=== PATIENT | female | born 1940 | race Asian ===

== ENCOUNTER 2016-09-08 07:33 | Emergency (ER) | payer MEDICARE, OTHER ==
[~2016-09-08] VITALS: Ht 160 cm; Wt 80.0 kg
[~2016-09-08 07:33] MED LIST: ALLO100T PO; AMLO-218 PO; ASPI-664 PO; ATOR40TA68 PO; GLIP-95 PO; LOSA50TA6 PO; METO50TA16 PO
[2016-09-08 07:40] VITALS: Ht 160 cm; Wt 80.0 kg
[2016-09-08 08:35] LABS: INR 1.11; PROTIME 14.3 Sec (12.2-14.2); PT RATIO 1.1
[2016-09-08 08:36] LABS: PARTIAL THROMBOPLASTIN TIME 33.2 Sec (25.0-35.0)
[2016-09-08 08:37] LABS: ADD SCAN DIFF NO
[2016-09-08 08:43] LABS: BASOPHILS % 0.3 % (0.0-2.0); EOSINOPHILS # 0.1 10^3/ul (0.0-0.5); HEMATOCRIT 30.6 % (37.0-47.0); HEMOGLOBIN 9.2 g/dl (12.0-16.0); LYMPHOCYTES % 12.4 % (15.0-51.0); MEAN CORPUSCULAR HEMOGLOBIN 29.3 pg (29.0-33.0); MEAN CORPUSCULAR HGB CONC 30.1 g/dl (32.0-37.0); MEAN CORPUSCULAR VOLUME 97.5 fl (82.0-101.0); MEAN PLATELET VOLUME 9.9 fl (7.4-10.4); MONOCYTE # 0.4 10^3/ul (0.3-0.9); MONOCYTES % 5.4 % (0.0-11.0); NEUTROPHIL # 6.1 10^3/ul (1.6-7.5); NEUTROPHILS % 79.3 % (39.0-77.0); NUCLEATED RED BLOOD CELLS% 0.3 /100WBC (0.0-0.0); PLATELET COUNT 263 10^3/UL (140-415); RED BLOOD COUNT 3.14 10^6/ul (4.20-5.40); WHITE BLOOD COUNT 7.7 10^3/ul (4.8-10.8)
[2016-09-08 09:35] LABS: CALCIUM 8.2 mg/dl (8.4-10.2); CREATININE 3.17 mg/dl (0.44-1.00); POTASSIUM 4.8 mmol/L (3.5-5.1)
[2016-09-08 10:28] VITALS: BP 150/69; PULSE 66; RESP 20; TEMP 97.8
--- NOTE | 2016-09-08 13:27 | ERD ---
ER Documentation Chief Complaint Date/Time DATE: 09/08/16 TIME: 13:23 Chief Complaint bleeding cath HPI Patient is a 76-year-old female with dialysis, diabetes, and hypertension who presents with bleeding from her dialysis site. She has a Padilla catheter in her left chest wall. Please note that a [place] auto polisher was used for the history and physical exam. The patient was due for dialysis today at 2:30 PM. She had bleeding from the dialysis catheter site and so she was sent to the ER. The nursing staff change the dressing 3 times at the nursing facility. Upon review of old medical record she has multiple visits for various complaints. ROS All systems reviewed and are negative except as per history of present illness. Medications Home Meds Reported Medications Amlodipine Besylate* (Norvasc*) 10 Mg Tablet, 10 MG PO DAILY, TAB 07/17/14 Metoprolol Succinate* (Toprol XL*) 50 Mg Tab.er.24h, 50 MG PO DAILY, TAB 07/17/14 Losartan Potassium* (Losartan Potassium*) 50 Mg Tablet, 50 MG PO DAILY, TAB 15 Atorvastatin* (Atorvastatin*) 40 Mg Tablet, 40 MG PO HS, TAB 07/17/14 Glipizide* (Glipizide*) 10 Mg Tablet, 10 MG PO AC BREAKFAST DINNER, TAB 07/17/14 Aspirin* (Aspirin* EC) 81 Mg Tablet.dr, 81 MG PO DAILY, TAB 07/17/14 Allopurinol* (Allopurinol*) 100 Mg Tablet, 100 MG PO DAILY, TAB 07/17/14 Allergies Allergies: Coded Allergies: No Known Allergy (Unverified , 10/22/13) PMhx/Soc Medical and Surgical Hx: pt denies Surgical Hx History of Surgery: Yes (dialysis catheter insertion) Anesthesia Reaction: No Hx Neurological Disorder: No Hx Respiratory Disorders: No Hx Cardiac Disorders: Yes (HTN) Hx Psychiatric Problems: No Hx Miscellaneous Medical Probl: Yes (ESRD. dialysis ([facility])) Hx Alcohol Use: No Hx Substance Use: No Hx Tobacco Use: No Smoking Status: Never smoker FmHx Family History: diabetes Physical Exam Vitals Vital Signs Date Time Temp Pulse Resp B/P Pulse Ox O2 Delivery O2 Flow Rate FiO2 09/08/16 10:28 97.8 66 20 150/69 100 Room Air 09/08/16 07:40 97.8 78 20 189/71 99 Physical Exam Const: No acute distress Head: Atraumatic Eyes: Normal Conjunctiva ENT: Normal External Ears, Nose and Mouth. Neck: Full range of motion..~ No meningismus. Resp: Clear to auscultation bilaterally Cardio: Regular rate and rhythm, no murmurs Abd: Soft, non tender, non distended. Normal bowel sounds Skin: Clot around the Padilla catheter site without active bleeding Back: No midline or flank tenderness Ext: No cyanosis, or edema Neur: Awake and alert Psych: Normal Mood and Affect Result Diagram: 09/08/16 0815 09/08/16 0815 Results 24 hrs Laboratory Tests Test 09/08/16 08:00 09/08/16 08:15 Prothrombin Time 14.3Sec Prothrombin Time Ratio 1.1 INR International Normalized Ratio 1.11 Activated Partial Thromboplast Time 33.2Sec White Blood Count 7.710^3/ul Red Blood Count 3.1410^6/ul Hemoglobin 9.2g/dl Hematocrit 30.6% Mean Corpuscular Volume 97.5fl Mean Corpuscular Hemoglobin 29.3pg Mean Corpuscular Hemoglobin Concent 30.1g/dl Red Cell Distribution Width 18.0% Platelet Count 69999^3/UL Mean Platelet Volume 9.9fl Neutrophils % 79.3% Lymphocytes % 12.4% Monocytes % 5.4% Eosinophils % 1.0% Basophils % 0.3% Nucleated Red Blood Cells % 0.3/100WBC Neutrophils # 6.110^3/ul Lymphocytes # 1.010^3/ul Monocytes # 0.410^3/ul Eosinophils # 0.110^3/ul Basophils # 0.010^3/ul Nucleated Red Blood Cells # 0.010^3/ul Sodium Level 133mmol/L Potassium Level 4.8mmol/L Chloride Level 101mmol/L Carbon Dioxide Level 30mmol/L Anion Gap 7 Blood Urea Nitrogen 29mg/dl Creatinine 3.17mg/dl Glucose Level 100mg/dl Calcium Level 8.2mg/dl Procedures/[facility] Patient is a 76-year-old female presents with bleeding from her dialysis catheter site. She does have anemia but does not require transfusion at this time. I believe that outpatient management is appropriate as there is no active bleeding at this time. A Surgicel dressing was applied around the site of the clot to ensure hemostasis. The patient will be discharged back to the nursing facility so that she can get her dialysis today at 2:30 PM. Departure Diagnosis: Primary Impression: Anemia Anemia type: unspecified type Qualified Code: D64.9 - Anemia, unspecified type Additional Impressions: Bleeding Complication of vascular access for dialysis Encounter type: initial encounter Qualified Code: T82.9XXA - Complication of vascular access for dialysis, initial encounter Condition: Fair Patient Instructions: Dialysis Shunt (Fistula) Bleeding Referrals: Your doctor Additional Instructions: Call your primary care doctor TOMORROW for an appointment during the next 1-2 days.See the doctor sooner or return here if your condition worsens before your appointment time. JOYCELYN BORJAS MD Sep 08, 2016 13:27
== END 2016-09-08 10:34 | disposition home or self-care (01) ==
LOC: E/R 07:33
DX: D64.9 Anemia, unspecified (principal); I12.0 Hypertensive chronic kidney disease with stage 5 chronic kidney disease or end stage renal disease; N18.6 End stage renal disease; E11.9 Type 2 diabetes mellitus without complications; Y82.8 Other medical devices associated with adverse incidents; Z99.2 Dependence on renal dialysis; Z79.82 Long term (current) use of aspirin; Z79.84 Long term (current) use of oral hypoglycemic drugs
CPT/HCPCS: 36415; 80048; 85025; 85610; 85730; 99283

== ENCOUNTER 2017-05-07 00:55 | Emergency (ER) | payer MEDICARE, OTHER ==
[~2017-05-07] VITALS: Ht 165.1 cm; Wt 54.0 kg
[~2017-05-07 00:55] MED LIST changes: +METO-319 PO; -METO50TA16 PO
[2017-05-07 01:13] VITALS: Ht 165.1 cm; Wt 54.0 kg
--- NOTE | 2017-05-07 01:16 | ERD ---
ER Documentation Chief Complaint Chief Complaint Dizziness HPI The patient is a 76-year-old female, presenting to the ER because of lightheadedness for the last 2 hours dialysis. She normally has dizziness after dialysis but it is more this evening. She denies syncope, near syncope, neck pain, chest pain, abdominal pain, vomiting, dysuria, diarrhea. She does not smoke nor drink Past medical history: Chronic kidney disease, hemodialysis on Wednesday and Wednesday, hypertension, diabetes mellitus, CAD Past surgical history: CABG, left chest hemodialysis catheter ROS All systems reviewed and are negative except as per history of present illness. Medications Home Meds Reported Medications Atorvastatin Calcium* (Atorvastatin Calcium*) 20 Mg Tablet, 20 MG PO QHS, #30 TAB 05/07/17 Carvedilol* (Carvedilol*) 6.25 Mg Tablet, 6.25 MG PO BID, #60 TAB 05/07/17 Isosorbide Mononitrate* (Isosorbide Mononitrate*) 60 Mg Tab.er.24h, 60 MG PO QAM , TAB 05/07/17 Benazepril Hcl* (Benazepril Hcl*) 10 Mg Tablet, 10 MG PO DAILY, #30 TAB 05/07/17 Metolazone* (Metolazone*) 2.5 Mg Tablet, 2.5 MG PO DAILY, TAB 05/07/17 Hydralazine Hcl* (Hydralazine Hcl*) 25 Mg Tab, 25 MG PO TID WITH MEALS, #90 TAB 05/07/17 Atorvastatin Calcium* (Atorvastatin Calcium*) 20 Mg Tablet, 20 MG PO QHS, #30 TAB 05/07/17 Metoprolol Succinate* (Toprol XL*) 50 Mg Tab.er.24h, 50 MG PO DAILY, TAB 07/17/14 Losartan Potassium* (Losartan Potassium*) 50 Mg Tablet, 50 MG PO DAILY, TAB 07/17/14 Glipizide* (Glipizide*) 10 Mg Tablet, 10 MG PO AC BREAKFAST DINNER, TAB 07/17/14 Discontinued Reported Medications Amlodipine Besylate* (Norvasc*) 10 Mg Tablet, 10 MG PO DAILY, TAB 07/17/14 Atorvastatin* (Atorvastatin*) 40 Mg Tablet, 40 MG PO HS, TAB 07/17/14 Aspirin* (Aspirin* EC) 81 Mg Tablet.dr, 81 MG PO DAILY, TAB 07/17/14 Allopurinol* (Allopurinol*) 100 Mg Tablet, 100 MG PO DAILY, TAB 07/17/14 Allergies Allergies: Coded Allergies: No Known Allergy (Unverified , 10/22/13) PMhx/Soc History of Surgery: Yes (dialysis catheter insertion) Anesthesia Reaction: No Hx Neurological Disorder: No Hx Respiratory Disorders: No Hx Cardiac Disorders: Yes (HTN) Hx Psychiatric Problems: No Hx Miscellaneous Medical Probl: Yes (ESRD. dialysis ([facility])) Hx Alcohol Use: No Hx Substance Use: No Hx Tobacco Use: No Physical Exam Vitals Vital Signs Date Time Temp Pulse Resp B/P Pulse Ox O2 Delivery O2 Flow Rate FiO2 05/07/17 05:45 70 18 118/71 99 Room Air 05/07/17 04:08 69 11 105/58 98 Room Air 05/07/17 02:00 74 14 117/60 98 Room Air 05/07/17 01:36 97.8 73 22 103/55 98 Room Air 05/07/17 01:13 97.8 69 19 103/55 98 Physical Exam Const: No acute distress. Head: Atraumatic. Eyes: Normal Conjunctiva. ENT: Normal External Ears, Nose and Mouth. Neck: Full range of motion. No meningismus. Resp: Clear to auscultation bilaterally. Cardio: Regular rate and rhythm. Abd: Soft, non distended, normal bowel sounds, non tender. Skin: No petechiae or rashes. Back: No midline or flank tenderness. Ext: No cyanosis, or edema. Neur: Awake and alert. No focal deficit Psych: Normal Mood and Affect. Result Diagram: 05/07/17 0141 05/07/17 0141 Results 24 hrs Laboratory Tests Test 05/07/17 01:41 White Blood Count 11.810^3/ul Red Blood Count 3.5210^6/ul Hemoglobin 11.2g/dl Hematocrit 35.3% Mean Corpuscular Volume 100.3fl Mean Corpuscular Hemoglobin 31.8pg Mean Corpuscular Hemoglobin Concent 31.7g/dl Red Cell Distribution Width 12.7% Platelet Count 85637^3/UL Mean Platelet Volume 9.7fl Neutrophils % 79.1% Lymphocytes % 13.6% Monocytes % 5.7% Eosinophils % 0.3% Basophils % 0.3% Nucleated Red Blood Cells % 0.0/100WBC Neutrophils # 9.410^3/ul Lymphocytes # 1.610^3/ul Monocytes # 0.710^3/ul Eosinophils # 0.010^3/ul Basophils # 0.010^3/ul Nucleated Red Blood Cells # 0.010^3/ul Prothrombin Time 13.2Sec Prothrombin Time Ratio 1.0 INR International Normalized Ratio 0.99 Activated Partial Thromboplast Time 31.0Sec Sodium Level 134mmol/L Potassium Level 5.3mmol/L Chloride Level 95mmol/L Carbon Dioxide Level 29mmol/L Anion Gap 15 Blood Urea Nitrogen 40mg/dl Creatinine 2.10mg/dl Glucose Level 158mg/dl Calcium Level 8.5mg/dl Current Medications Medications (Trade) Dose Ordered Sig/Elena Route PRN Reason Start Time Stop Time Status Last Admin Dose Admin Sodium Polystyrene Sulfonate (Kayexalate) 30 gm ONCE ONCE PO 05/07/17 05:00 05/07/17 05:03 DC 05/07/17 05:23 Procedures/[place] [address] Radiology Main Line: [phone] DIAGNOSTIC IMAGING REPORT Patient: TEENA CISNEROS : 1940 Age: 76 Sex: F [id number] DOS: 05/07/17 0129 Ordering MD: GAIL MEDEROS MD Location: E/R Room/Bed: PROCEDURE: CT Brain without contrast. CLINICAL INDICATION: Dizziness TECHNIQUE: A CT of the brain was performed utilizing axial imaging from the skull base through the vertex without intravenous contrast. Multiplanar reformatted images were made.The CTDIvol is 44.19 mGy and the DLP is 720.23 mGycm. One or more the following dose reduction techniques were utilized: Automated exposure control, adjustment of the mA and / or kV according to patient's size, or use of iterative reconstruction technique. DICOM images are available. COMPARISON: None. FINDINGS: There is no intracranial hemorrhage, mass effect, or midline shift. No extra- axial fluid collection is seen. Mild atrophy is identified with compensatory ventricular and sulcal enlargement. Mild to moderate decreased attenuation is seen in the periventricular and deep white matter, compatible with microvascular ischemic disease. The ta white matter differentiation is well preserved with no acute infarct detected. The osseous structures and visualized paranasal sinuses are unremarkable. Arterial calcification. Cavum septum pellucidum et vergae, normal variant, is seen. IMPRESSION: 1. No evidence of acute intracranial pathology. 2. Mild diffuse atrophy. 3. There is mild to moderate microvascular ischemic disease in the periventricular and deep white matter. 4. Moderate arterial calcification. RPTAT: HJES .Leo Pappas MD, MD Date Time Electronically viewed and signed by .Leo Pappas MD, MD on 05/07/2017 03:43 .S/ CC: GAIL MEDEROS MD EKG: Read by emergency physician Rate/Rhythm: Normal Sinus Rhythm 69 beats/min, QRS, ST, T-waves: No ST elevation, lat ant T abn, LAD Impression: Abnormal EKG MEDICAL MAKING DECISION: The patient is a 76-year-old female, presenting with acute dizziness of unclear etiology, acute mild hyperkalemia. She was treated with Kayexalate 30 g p.o. for acute hypokalemia with good response, is stable for outpatient follow-up The differential diagnoses considered include but are not limited to central causes such as cerebellar infarct, cerebellar hemorrhage, cerebellar tumor, acoustic neuroma, peripheral causes such as benign positional vertigo, labyrinthitis, medication, Meniere's disease. Departure Diagnosis: Primary Impression: Dizziness Additional Impressions: Hyperkalemia Anemia Condition: Good Comments I discussed the findings with the patient. I advised the patient to follow-up with the primary physician in about 1-2 days, sooner if needed and return if any concern. Disclaimer: Inadvertent spelling and grammatical errors are likely due to EHR/ dictation software use and do not reflect on the overall quality of patient care. Also, please note that the electronic time recorded on this note does not necessarily reflect the actual time of the patient encounter. GAIL MEDEROS MD May 07, 2017 01:16
[2017-05-07 01:36] VITALS: TEMP 97.8
[2017-05-07 01:47] LABS: BASOPHILS % 0.3 % (0.0-2.0); EOSINOPHILS % 0.3 % (0.0-7.0); HEMATOCRIT 35.3 % (37.0-47.0); HEMOGLOBIN 11.2 g/dl (12.0-16.0); LYMPHOCYTES # 1.6 10^3/ul (0.8-2.9); LYMPHOCYTES % 13.6 % (15.0-51.0); MEAN CORPUSCULAR HEMOGLOBIN 31.8 pg (29.0-33.0); MEAN CORPUSCULAR HGB CONC 31.7 g/dl (32.0-37.0); MEAN CORPUSCULAR VOLUME 100.3 fl (82.0-101.0); MEAN PLATELET VOLUME 9.7 fl (7.4-10.4); MONOCYTE # 0.7 10^3/ul (0.3-0.9); MONOCYTES % 5.7 % (0.0-11.0); NEUTROPHIL # 9.4 10^3/ul (1.6-7.5); NEUTROPHILS % 79.1 % (39.0-77.0); PLATELET COUNT 204 10^3/UL (140-415); RED BLOOD COUNT 3.52 10^6/ul (4.20-5.40); RED CELL DISTRIBUTION WIDTH 12.7 % (11.5-14.5); WHITE BLOOD COUNT 11.8 10^3/ul (4.8-10.8)
[2017-05-07 02:27] LABS: INR 0.99; PROTIME 13.2 Sec (11.9-14.9)
[2017-05-07 02:51] LABS: CALCIUM 8.5 mg/dl (8.4-10.2); CREATININE 2.1 mg/dl (0.44-1.00)
[2017-05-07 02:52] LABS: POTASSIUM 5.3 mmol/L (3.5-5.1)
--- NOTE | 2017-05-07 03:44 | RADRPT ---
PROCEDURE: CT Brain without contrast. CLINICAL INDICATION: Dizziness TECHNIQUE: A CT of the brain was performed utilizing axial imaging from the skull base through the vertex without intravenous contrast. Multiplanar reformatted images were made.The CTDIvol is 44.19 mGy and the DLP is 720.23 mGycm. One or more the following dose reduction techniques were utilized: Automated exposure control, adjus tment of the mA and / or kV according to patient's size, or use of iterative reconstruction techniqu e. DICOM images are available. COMPARISON: None. FINDINGS: There is no intracranial hemorrhage, mass effect, or midline shift. No extra-axial fluid collection is seen. Mild atrophy is identified with compensatory ventricular and sulcal enlargement. Mild to moderate decreased attenuation is seen in the periventricular and deep white matter, compatible wit h microvascular ischemic disease. The ta white matter differentiation is well preserved with no ac mcgrath infarct detected. The osseous structures and visualized paranasal sinuses are unremarkable. Art erial calcification. Cavum septum pellucidum et vergae, normal variant, is seen. IMPRESSION: 1. No evidence of acute intracranial pathology. 2. Mild diffuse atrophy. 3. There is mild to moderate microvascular ischemic disease in the periventricular and deep white m atter. 4. Moderate arterial calcification. RPTAT: HJES .Leo Pappas MD, MD Date Time Electronically viewed and signed by .Leo Pappas MD, MD on 05/07/2017 03:43 .S/
[2017-05-07] MEDS ORDERED: CARV6.2579 PO (03:50)
[2017-05-07] MEDS ORDERED: METO2.5T12 PO (03:50)
[2017-05-07] MEDS ORDERED: ISOS60TA PO (03:50)
[2017-05-07] MEDS ORDERED: ATOR20TA38 PO (03:50)
[2017-05-07] MEDS ORDERED: HYDR-3671 PO (03:50)
[2017-05-07] MEDS ORDERED: BENA10TA48 PO (03:50)
[2017-05-07] MEDS ORDERED: NA POLYST SULFON 15 GM/60 ML BTL PO ONE (05:00)
[2017-05-07 05:45] VITALS: BP 118/71; PULSE 70; RESP 18
== END 2017-05-07 06:05 | disposition home or self-care (01) ==
LOC: E/R 00:55
DX: D64.9 Anemia, unspecified (principal); E87.5 Hyperkalemia; I12.0 Hypertensive chronic kidney disease with stage 5 chronic kidney disease or end stage renal disease; N18.6 End stage renal disease; I25.10 Atherosclerotic heart disease of native coronary artery without angina pectoris; E11.22 Type 2 diabetes mellitus with diabetic chronic kidney disease; Z99.2 Dependence on renal dialysis; Z98.61 Coronary angioplasty status; Z79.84 Long term (current) use of oral hypoglycemic drugs; Z79.82 Long term (current) use of aspirin
CPT/HCPCS: 70450; 80048; 85025; 85610; 85730

== ENCOUNTER 2018-07-09 16:29 | Emergency (ER) | payer MEDICARE, OTHER ==
[~2018-07-09] VITALS: Ht 162.6 cm; Wt 70.0 kg
[~2018-07-09 16:29] MED LIST changes: -ALLO100T PO; -AMLO-218 PO; -ASPI-664 PO; +ATOR20TA38 PO; -ATOR40TA68 PO; +BENA10TA4 PO; +CARV6.2579 PO; -GLIP-95 PO; +GLIP10TA14 PO; +HYDR-3671 PO; +ISOS60TA PO; +LOSA50TA14 PO; -LOSA50TA6 PO; +METO2.5T PO
[2018-07-09 16:34] VITALS: Ht 162.6 cm; Wt 70.0 kg
[2018-07-09] MEDS ORDERED: PROTAMINE 50 MG INJ IV ONE (18:00)
--- NOTE | 2018-07-09 20:20 | ERD ---
ER Documentation Chief Complaint Chief Complaint BIB RA FOR EVAL OF BLEEDING MIR HD FISTULA. PRESSURE DRESSING BY EMS HPI This is 78-year-old female who was sent from dialysis for a bleeding AV fistula. The patient completed dialysis and they wrapped her dialysis shunt however the patient took it off at home too early and blood was squirting from the fistula. The patient did not have any syncope or pain. She is brought in by EMS with gauze wrapped around her left bicep ROS All systems reviewed and are negative except as per history of present illness. Medications Home Meds Reported Medications Atorvastatin Calcium* (Atorvastatin Calcium*) 20 Mg Tablet, 20 MG PO QHS, #30 TAB 05/07/17 Carvedilol* (Carvedilol*) 6.25 Mg Tablet, 6.25 MG PO BID, #60 TAB 05/07/17 Isosorbide Mononitrate* (Isosorbide Mononitrate*) 60 Mg Tab.er.24h, 60 MG PO QAM, TAB 05/07/17 Benazepril Hcl* (Benazepril Hcl*) 10 Mg Tablet, 10 MG PO DAILY, #30 TAB 05/07/17 Metolazone* (Metolazone*) 2.5 Mg Tablet, 2.5 MG PO DAILY, TAB 05/07/17 Hydralazine Hcl* (Hydralazine Hcl*) 25 Mg Tab, 25 MG PO TID WITH MEALS, #90 TAB 05/07/17 Atorvastatin Calcium* (Atorvastatin Calcium*) 20 Mg Tablet, 20 MG PO QHS, #30 TAB 05/07/17 Metoprolol Succinate* (Toprol XL*) 50 Mg Tab.er.24h, 50 MG PO DAILY, TAB 07/17/14 Losartan Potassium* (Losartan Potassium*) 50 Mg Tablet, 50 MG PO DAILY, TAB 07/17/14 Glipizide* (Glipizide*) 10 Mg Tablet, 10 MG PO AC BREAKFAST DINNER, TAB 07/17/14 Allergies Allergies: Coded Allergies: No Known Allergy (Unverified , 10/22/13) PMhx/Soc History of Surgery: Yes (dialysis catheter insertion) Anesthesia Reaction: No Hx Neurological Disorder: No Hx Respiratory Disorders: No Hx Cardiac Disorders: Yes (HTN) Hx Psychiatric Problems: No Hx Miscellaneous Medical Probl: Yes (ESRD. dialysis ([facility]), DM) Hx Alcohol Use: No Hx Substance Use: No Hx Tobacco Use: No Smoking Status: Never smoker FmHx Family History: No coronary disease Physical Exam Vitals Vital Signs Date Temp Pulse Resp B/P (MAP) Pulse Ox O2 O2 Flow FiO2 Time Delivery Rate 07/09/18 80 14 131/63 99 Room Air 19:30 (85) 07/09/18 75 19 138/63 100 Room Air 18:30 (88) 07/09/18 97.3 89 19 124/80 99 16:34 (95) Physical Exam Const: Well-developed, well-nourished Head: Atraumatic, normocephalic Eyes: Normal Conjunctiva, PERRLA, EOMI, normal sclera, no nystagmus ENT: Normal External Ears, Nose and Mouth, moist mucus membranes. Neck: Full range of motion. No meningismus, no lymphadenopathy. Resp: Clear to auscultation bilaterally, no wheezing, rhonchi, rales Cardio: Regular rate and rhythm, no murmurs, S1 S2 present Abd: Soft, non tender x 4, non distended. Normal bowel sounds, no guarding or rebound, no pulsitile abdominal masses or bruits Skin: No petechiae or rashes, no ecchymosis , no maculopapular rash Back: No midline or flank tenderness Ext: No cyanosis, or edema, FROM x 4, normal inspection, neurovascularly intact x 4, we unwrapped the gauze and the patient still having some bleeding Neur: Awake and alert, STR 5/5 x 4, sensation intact x 4, no focal findings, cerebellum intact Psych: Normal Mood and Affect Results 24 hrs Current Medications Medications Dose Sig/Elena Start Time Status Last (Trade) Ordered Route PRN Stop Time Admin Dose Reason Admin Protamine 50 mg ONCE ONCE 07/09/18 DC 07/09/18 Sulfate IV 18:00 19:04 (Protamine 07/09/18 18:01 Sulfate) Procedures/[facility] The patient was given protamine sulfate 50 mg IV to reverse the heparin. We did another wrap and pressure dressing and was released later and there is no bleeding. Patient feels much better at this time, and vital signs are normal, symptoms arce ve improved. I did give strict instructions to return to the ED if symptoms continue or worsen, patient will otherwise follow-up with primary care physician. Patient understood instructions and agreed to plan. Disclaimer: Inadvertent spelling and grammatical errors are likely due to EHR/dictation software use and do not reflect on the overall quality of patient care. Also, please note that the electronic time recorded on this note does not necessarily reflect the actual time of the patient encounter. Departure Diagnosis: Primary Impression: Complication of vascular access for dialysis Encounter type: initial encounter Qualified Codes: T82.9XXA - Unspecified complication of cardiac and vascular prosthetic device, implant and graft, initial encounter Condition: Stable Patient Instructions: Dialysis Access ANGELIC BOSTON DO Jul 09, 2018 20:20
[2018-07-09 20:25] VITALS: BP 129/72; PULSE 82; RESP 16
== END 2018-07-09 20:26 | disposition home or self-care (01) ==
LOC: E/R 16:29
DX: T82.9XXA Unspecified complication of cardiac and vascular prosthetic device, implant and graft, initial encounter (principal); I12.0 Hypertensive chronic kidney disease with stage 5 chronic kidney disease or end stage renal disease; N18.6 End stage renal disease; E11.22 Type 2 diabetes mellitus with diabetic chronic kidney disease; Y82.8 Other medical devices associated with adverse incidents; Z79.84 Long term (current) use of oral hypoglycemic drugs
CPT/HCPCS: 96374; 99284; J2720